=== PATIENT | female | born 1965 | race Two or more races ===

== ENCOUNTER 2022-05-18 07:29 | Outpatient (CLI) | payer OTHER | END 2022-05-18 07:30 | disposition home or self-care (01) | LOC: LAB 07:29 | PROVIDERS: ATTEND Internal Medicine | DX: E11.9 Type 2 diabetes mellitus without complications (principal); E78.2 Mixed hyperlipidemia; E55.9 Vitamin D deficiency, unspecified; E04.9 Nontoxic goiter, unspecified ==

== ENCOUNTER 2022-05-18 08:23 | Outpatient (CLI) | payer OTHER | END 2022-05-18 08:30 | disposition home or self-care (01) | LOC: SONOGRAMA 08:23 | PROVIDERS: ATTEND Internal Medicine | DX: E04.9 Nontoxic goiter, unspecified (principal); I20.9 Angina pectoris, unspecified ==

== ENCOUNTER 2022-10-12 07:54 | Outpatient (CLI) | payer OTHER | END 2022-10-12 07:59 | disposition home or self-care (01) | LOC: LAB 07:54 | PROVIDERS: ATTEND Internal Medicine | DX: R19.5 Other fecal abnormalities (principal) ==

== ENCOUNTER 2022-11-27 07:30 | Outpatient (CLI) | payer OTHER | END 2022-11-27 07:31 | disposition home or self-care (01) | LOC: LAB 07:30 | PROVIDERS: ATTEND Obstetrics & Gynecology Obstetrics | DX: D64.3 Other sideroblastic anemias (principal); N39.0 Urinary tract infection, site not specified; E03.9 Hypothyroidism, unspecified; R10.2 Pelvic and perineal pain; E11.9 Type 2 diabetes mellitus without complications ==

== ENCOUNTER 2022-11-27 07:52 | Outpatient (CLI) | payer OTHER | END 2022-11-27 07:56 | disposition home or self-care (01) | LOC: MAMO-SONO 07:52 | PROVIDERS: ATTEND Obstetrics & Gynecology Obstetrics | DX: N60.01 Solitary cyst of right breast (principal); N60.02 Solitary cyst of left breast ==

== ENCOUNTER → 2022-12-21 07:29 | Outpatient (CLI) | payer OTHER | END | disposition home or self-care (01) | LOC: LAB 07:29 | PROVIDERS: ATTEND Internal Medicine Endocrinology, Diabetes & Metabolism | DX: E11.9 Type 2 diabetes mellitus without complications (principal); E78.00 Pure hypercholesterolemia, unspecified; D50.0 Iron deficiency anemia secondary to blood loss (chronic) ==

== ENCOUNTER 2022-12-21 07:45 | Outpatient (CLI) | payer OTHER | END 2022-12-21 07:54 | disposition home or self-care (01) | LOC: SONOGRAMA 07:45 | PROVIDERS: ATTEND Obstetrics & Gynecology Obstetrics | DX: R10.2 Pelvic and perineal pain (principal); D25.1 Intramural leiomyoma of uterus ==

== ENCOUNTER 2023-02-20 07:47 | Outpatient (CLI) | payer OTHER | END 2023-02-20 07:48 | disposition home or self-care (01) | LOC: LAB 07:47 | PROVIDERS: ATTEND Internal Medicine Endocrinology, Diabetes & Metabolism | DX: E11.9 Type 2 diabetes mellitus without complications (principal); E78.00 Pure hypercholesterolemia, unspecified; D51.9 Vitamin B12 deficiency anemia, unspecified; E06.3 Autoimmune thyroiditis ==

== ENCOUNTER 2023-02-28 13:44 | Outpatient (CLI) | payer OTHER | END 2023-02-28 13:49 | disposition home or self-care (01) | LOC: NUCLEAR 13:44 | PROVIDERS: ATTEND Obstetrics & Gynecology Obstetrics | DX: M81.0 Age-related osteoporosis without current pathological fracture (principal) ==

== ENCOUNTER 2023-02-28 14:44 | Outpatient (CLI) | payer OTHER | END 2023-02-28 14:49 | disposition home or self-care (01) | LOC: RAD 14:44 | PROVIDERS: ATTEND Internal Medicine | DX: M50.33 Other cervical disc degeneration, cervicothoracic region (principal); G89.11 Acute pain due to trauma ==

== ENCOUNTER 2023-04-09 08:07 | Outpatient (CLI) | payer OTHER | END 2023-04-09 08:10 | disposition home or self-care (01) | LOC: LAB 08:07 | DX: D72.819 Decreased white blood cell count, unspecified (principal); B34.9 Viral infection, unspecified ==

== ENCOUNTER 2023-06-26 07:53 | Outpatient (CLI) | payer OTHER | END 2023-06-26 07:57 | disposition home or self-care (01) | LOC: LAB 07:53 | PROVIDERS: ATTEND Obstetrics & Gynecology Obstetrics | DX: D44.3 Neoplasm of uncertain behavior of pituitary gland (principal); N39.0 Urinary tract infection, site not specified; E03.9 Hypothyroidism, unspecified; I10 Essential (primary) hypertension; R10.2 Pelvic and perineal pain; E11.9 Type 2 diabetes mellitus without complications ==

== ENCOUNTER 2023-06-26 08:17 | Outpatient (CLI) | payer OTHER | END 2023-06-26 08:21 | disposition home or self-care (01) | LOC: RAD 08:17 | PROVIDERS: ATTEND Internal Medicine | DX: I20.9 Angina pectoris, unspecified (principal); E04.9 Nontoxic goiter, unspecified ==

== ENCOUNTER 2023-08-30 08:07 | Outpatient (CLI) | payer OTHER ==
[2023-08-30 08:45] LABS: HEMATOCRIT 38.3 % (36.0-45.00); HEMOGLOBIN 12.4 g/dL (12.0-15.00); MEAN CELL VOLUME 83.9 fL (80.00-100.00); MEAN CORPUSCULAR HEMOGLOBIN 27.1 pg (27.00-32.0); MEAN CORPUSCULAR HGB CONC 32.2 g/dl (32.0-36.0); PLATELET COUNT 180 K/uL (150-450); RED BLOOD COUNT 4.57 M/uL (4.00-6.00)
[2023-08-30 09:23] LABS: ALBUMIN 3.5 gm/dL (3.4-5.0); BILIRUBIN TOTAL 0.63 mg/dL (0.3-1.2); CALCIUM 9.3 mg/dL (8.5-10.1); CREATININE SERUM 0.81 mg/dL (0.55-1.02); GFR 73.14; GLOBULINA 3.9 G/DL (2.4-3.5); POTASSIUM 4.93 mEq/L (3.5-5.1); TOTAL PROTEIN 7.4 gm/dL (6.4-8.2)
== END 2023-08-30 08:09 | disposition home or self-care (01) ==
LOC: LAB 08:07
DX: B34.9 Viral infection, unspecified (principal)

== ENCOUNTER 2023-09-27 07:57 | Outpatient (CLI) | payer OTHER ==
[2023-09-27 08:56] LABS: HEMATOCRIT 36.9 % (36.0-45.00); HEMOGLOBIN 12.4 g/dL (12.0-15.00); MEAN CELL VOLUME 83.6 fL (80.00-100.00); MEAN CORPUSCULAR HEMOGLOBIN 28.2 pg (27.00-32.0); MEAN CORPUSCULAR HGB CONC 33.7 g/dl (32.0-36.0); PLATELET COUNT 195 K/uL (150-450); RED BLOOD COUNT 4.42 M/uL (4.00-6.00); RED CELL DISTRIBUTION WIDTH 14.6 % (11.5-14.5)
[2023-09-27 09:07] LABS: ALBUMIN 3.5 gm/dL (3.4-5.0); BILIRUBIN TOTAL 0.57 mg/dL (0.3-1.2); CALCIUM 9.1 mg/dL (8.5-10.1); CREATININE SERUM 0.81 mg/dL (0.55-1.02); GFR 72.88; GLOBULINA 3.8 G/DL (2.4-3.5); POTASSIUM 3.96 mEq/L (3.5-5.1); TOTAL PROTEIN 7.3 gm/dL (6.4-8.2)
[2023-09-28 16:10] LABS: kappa lambda r 1.32 (0.26-1.65); kappa light 14.9 mg/L (3.3-19.4); lambda light 11.3 mg/L (5.7-26.3)
== END 2023-09-27 07:58 | disposition home or self-care (01) ==
LOC: LAB 07:57
DX: D72.819 Decreased white blood cell count, unspecified (principal); E80.6 Other disorders of bilirubin metabolism; B34.9 Viral infection, unspecified

== ENCOUNTER 2023-10-03 07:36 | Outpatient (CLI) | payer OTHER | END 2023-10-03 07:37 | disposition home or self-care (01) | LOC: SONOGRAMA 07:36 | PROVIDERS: ATTEND Internal Medicine Gastroenterology | DX: R16.2 Hepatomegaly with splenomegaly, not elsewhere classified (principal) ==

== ENCOUNTER → 2023-11-29 06:54 | Outpatient (CLI) | payer OTHER ==
[2023-11-29 07:35] LABS: HEMATOCRIT 38.1 % (36.0-45.00); HEMOGLOBIN 12.3 g/dL (12.0-15.00); MEAN CELL VOLUME 84.1 fL (80.00-100.00); MEAN CORPUSCULAR HEMOGLOBIN 27.3 pg (27.00-32.0); MEAN CORPUSCULAR HGB CONC 32.4 g/dl (32.0-36.0); PLATELET COUNT 198 K/uL (150-450); RED BLOOD COUNT 4.52 M/uL (4.00-6.00); RED CELL DISTRIBUTION WIDTH 15.4 % (11.5-14.5)
[2023-11-29 08:15] LABS: ALBUMIN 3.5 gm/dL (3.4-5.0); BILIRUBIN TOTAL 0.5 mg/dL (0.3-1.2); CALCIUM 9.3 mg/dL (8.5-10.1); CHOL HDL RATIO 2.9 (0-5.0); CREATININE SERUM 0.76 mg/dL (0.55-1.02); GFR 78.44; GLOBULINA 3.7 G/DL (2.4-3.5); POTASSIUM 4.09 mEq/L (3.5-5.1); T4 FREE 0.95 NG/ML (0.76-1.46); TOTAL PROTEIN 7.2 gm/dL (6.4-8.2); TSH 2.01 uIU/mL (0.358-3.74)
[2023-11-30 16:08] LABS: tpo 9 IU/mL (0-34)
== END | disposition home or self-care (01) ==
LOC: LAB 06:54
PROVIDERS: ATTEND Internal Medicine
DX: E11.9 Type 2 diabetes mellitus without complications (principal); E78.2 Mixed hyperlipidemia; E04.9 Nontoxic goiter, unspecified; D72.19 Other eosinophilia

== ENCOUNTER 2023-12-16 07:12 | Outpatient (CLI) | payer OTHER ==
[2023-12-16 08:50] LABS: ALBUMIN 3.6 gm/dL (3.4-5.0); BILIRUBIN TOTAL 0.56 mg/dL (0.3-1.2); CALCIUM 9.2 mg/dL (8.5-10.1); CHOL HDL RATIO 3.3 (0-5.0); CREATININE SERUM 0.77 mg/dL (0.55-1.02); GFR 77.27; GLOBULINA 3.4 G/DL (2.4-3.5); POTASSIUM 4.06 mEq/L (3.5-5.1); TSH 1.28 uIU/mL (0.358-3.74)
[2023-12-16 11:49] LABS: VITAMIN D3 25 HYDROXY 38.02 ng/ml (30-120)
== END 2023-12-16 07:13 | disposition home or self-care (01) ==
LOC: LAB 07:12
PROVIDERS: ATTEND Internal Medicine Endocrinology, Diabetes & Metabolism
DX: E06.3 Autoimmune thyroiditis (principal); E11.9 Type 2 diabetes mellitus without complications; E78.2 Mixed hyperlipidemia; D51.9 Vitamin B12 deficiency anemia, unspecified; E55.9 Vitamin D deficiency, unspecified

== ENCOUNTER 2023-12-16 08:10 | Outpatient (CLI) | payer OTHER | END 2023-12-16 08:21 | disposition home or self-care (01) | LOC: MAMO-SONO 08:10 | PROVIDERS: ATTEND Internal Medicine | DX: N76.0 Acute vaginitis (principal); N64.89 Other specified disorders of breast; R92.1 Mammographic calcification found on diagnostic imaging of breast; Z12.31 Encounter for screening mammogram for malignant neoplasm of breast ==